=== PATIENT | female | born 1990 | race Caucasian/White ===

== ENCOUNTER 2021-11-17 16:53 | Emergency (ER) | payer MEDICAID, SELFPAY ==
[2021-11-17 17:01] VITALS: BP 128/79; PULSE 81; RESP 12; TEMP 36.7; O2SAT 97; BMI 24.0
--- NOTE | 2021-11-17 17:31 | NURSING ---
pt had blinking lt eye and pulling of face. was just throwing up and talking to nurse about day events. pt then had tonic clonic seizure and drooling with legs drawn up and arms moving about. pt post ictal afterword. pt in bed and safe and in at bedside. seizure lasting 30sec. spo2 90's
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
--- NOTE | 2021-11-17 17:42 | EKG12_ITS ---
Test Reason : SEIZURES Blood Pressure : / mmHG Vent. Rate : 102 BPM Atrial Rate : 102 BPM P-R Int : 148 ms QRS Dur : 086 ms QT Int : 350 ms P-R-T Axes : 069 080 065 degrees QTc Int : 456 ms Sinus tachycardia Otherwise normal ECG Confirmed by NINI BOONE, FLOR ([id number]), newspaper copy editor DANYA ODOM ([id number]) on 11/18/2021 11:26:24 AM Referred By: PL Confirmed By:FLOR TERRAZAS MD
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
[2021-11-17] MEDS: Ondansetron 4 MG/2 ML Vial IV (18:08)
[2021-11-17] MEDS: LORazepam 2 MG/ML Syringe 1 MG IV (18:11)
--- NOTE | 2021-11-17 18:14 | NURSING ---
mother in at bedside. pt with another seizure that started again with eye twitching then into full tonic clonic seizure lasting 50sec. nrb applied d.t pt becoming cyanotic and holding breath but does not keep on when arouses and rips it off
[2021-11-17 18:20] LABS: Absolute Lymphocyte Count 1.43 X10^3/uL (0.83-4.51); Absolute Neutrophil Count 4.6 X10^3/uL (2.0-7.7); Basophil# 0.05 X10^3/uL; Basophil% 0.7 % (0-1); Eosinophil# 0.41 X10^3/uL; Eosinophils% 5.7 % (0-5); Hematocrit 34.7 % (37-47); Hemoglobin 11.8 g/dL (12.0-15.0); Lymphocyte # 1.43 X10^3/ul (0.83-4.51); Lymphocyte % 19.9 % (19-41); Mean Corpuscular Hgb 30.4 pg (27.0-32.0); Mean Corpuscular Volume 89.4 fL (81-99); Mean Platelet Vol. 10.3 fl (6.2-12.0); Monocyte# 0.65 X10^3/uL; Monocyte% 9.1 % (0-10); NRBC Flagged by Analyzer 0 % (0-5); Neutrophil # 4.59 X10^3/uL (2.7-7.7); Neutrophil % 63.9 % (47-70); Platelet Count 218 K/mm3 (150-450); RBC Distribution Width CV 13.1 % (11.6-14.6); Red Blood Count 3.88 M/mm3 (4.2-5.4); White Blood Count 7.2 K/mm3 (4.4-11.0)
[2021-11-17 18:26] VITALS: BP 117/80; PULSE 88; RESP 15; O2SAT 96
[2021-11-17 18:36] LABS: ALB/GLOB Ratio 1.2 RATIO (0.9-2.4); AST(SGOT) 20 U/L (15-37); Alanine Aminotransfer ALT/SGPT 23 U/L (13-56); Albumin, Serum 3.8 g/dL (3.2-5.0); Alkaline Phosphatase 55 U/L (45-117); Anion Gap 8 (5-15); BUN 7 mg/dL (7-18); BUN/Creat Ratio 10.3 RATIO (10-20); Calcium,Total 8.2 mg/dL (8.5-10.1); Chloride 97 mmol/L (98-107); Creatinine, Serum 0.68 mg/dL (0.55-1.02); EST Glomerular Filtration Rate 108 mL/min (>60); Est Glom Filt Rate - Afr Amer 131 mL/min (>60); Estimated Creatinine Clearance 105.41 ml/min; Globulin 3.1 g/dL (2.2-4.2); Glucose 100 mg/dL (74-106); Potassium 3.6 mmol/L (3.5-5.1); Protein, Total 6.9 g/dL (6.4-8.2); Sodium Level 131 mmol/L (136-145)
[2021-11-17 18:45] LABS: Lactic Acid 1.6 mmol/L (0.4-1.9)
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
[2021-11-17 19:10] LABS: Alcohol, Blood (Medical)-Serum < 3.0 mg/dL
[2021-11-17 19:12] LABS: Internal QC Validated? YES +Cl - CLEAR BKGD; Pregnancy, Serum, hCG Quali. NEGATIVE Negative
[2021-11-17 19:26] VITALS: BP 93/65; PULSE 79; RESP 20; O2SAT 97
--- NOTE | 2021-11-17 19:37 | ED.RN ---
1915 pt had her 4th seizure, aware, pulse ox dropped to 68%, placed on nrb
[2021-11-17] MEDS: levETIRAcetam IV 1,000 MG/100 ML BAG 400 MG IV (19:56)
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
[2021-11-17 20:34] VITALS: BP 168/94; PULSE 95; RESP 14; O2SAT 96
[2021-11-17 20:45] VITALS: BP 153/74
[2021-11-17 22:07] VITALS: BP 153/74; PULSE 78; RESP 16; TEMP 36.3; O2SAT 97
== END 2021-11-17 22:11 | disposition short-term general hospital (02) ==
PROVIDERS: Emergency Provider Emergency Medicine; Visit Provider Emergency Medicine
DX: Z04.1 Encounter for examination and observation following transport accident (principal); G40.901 Epilepsy, unspecified, not intractable, with status epilepticus; Z79.899 Other long term (current) drug therapy
CPT/HCPCS: 70450; 70486; 71045; 72125; 72170; 80053; 82077; 83605; 84703; 85025; 87426; 93005; 96365; 96375; 99285; A4216; J2405

== ENCOUNTER 2024-09-28 16:39 | Emergency (ER) | payer MEDICARE, SELFPAY ==
[2024-09-28 16:40] VITALS: BP 108/81; PULSE 99; RESP 16; TEMP 36.2; O2SAT 99; BMI 24.0
--- NOTE | 2024-09-28 16:44 | EX.ED.DYSGE1 ---
HPI History of Present Illness Chief Complaint: Seizure [facility] Medical History delivery delivered Nocturnal epilepsy Migraines Seizures Home Medications ?Medication ?Instructions ?Recorded ?Last Taken ?Type [id number] 250 1 ea PO PRN PRN Pain 12/21/16 Unknown History mg-250 mg-65 mg tablet (Excedrin Migraine) Ibuprofen [Motrin] 800 mg PO TID pain or cramping #30 12/23/16 Unknown Rx tabs citalopram 20 mg tablet 20 mg PO DAILY 11/17/21 Unknown History folic acid 1 mg tablet 2 mg PO DAILY 11/17/21 Unknown History magnesium oxide 400 mg PO DAILY 11/17/21 Unknown History meloxicam 7.5 mg tablet 7.5 mg PO DAILY 11/17/21 Unknown History ondansetron 4 mg disintegrating 4 mg PO Q6H PRN Nausea 11/17/21 Unknown History tablet oxcarbazepine 300 mg tablet 900 mg PO BID 11/17/21 Unknown History perampanel 8 mg tablet 8 mg PO QHS 11/17/21 Unknown History cetirizine 10 mg tablet 10 mg PO DAILY 09/28/24 Unknown History lacosamide 100 mg tablet 100 mg PO BID 09/28/24 Unknown History magnesium oxide 400 mg (241.3 mg 400 mg PO QHS 09/28/24 Unknown History magnesium) tablet omeprazole 20 mg capsule,delayed 20 mg PO DAILY 09/28/24 Unknown History release ondansetron 4 mg disintegrating 4 mg PO Q8H PRN PRN Nausea #10 tabs 09/28/24 Unknown Rx tablet oxcarbazepine 300 mg tablet 750 mg PO BID 09/28/24 Unknown History perampanel 8 mg tablet (Fycompa) 8 mg PO QHS 09/28/24 Unknown History pyridoxine (vitamin B6) 100 mg 100 mg PO DAILY 09/28/24 Unknown History tablet quetiapine 25 mg tablet 25 mg PO QHS 09/28/24 Unknown History sertraline 100 mg tablet 200 mg PO QHS 09/28/24 Unknown History zonisamide 100 mg capsule 300 mg PO QHS 09/28/24 Unknown History Allergy/AdvReac Type Severity Reaction Status Date / Time bupropion HCl (From Allergy Nausea Verified 09/28/24 16:43 Wellbutrin) clarithromycin (From Biaxin) Allergy Other Verified 09/28/24 16:43 aripiprazole (From Abilify) AdvReac Other Verified 09/28/24 16:43 tramadol AdvReac Upset Verified 09/28/24 16:43 Stomach Social History Smoking Status: Never smoker EXAM Physical Exam Const Vital Signs: 09/28/24 16:40 09/28/24 18:39 09/28/24 19:33 Temperature 97.2 F L 97.8 F Temperature Source Oral Pulse Rate 99 77 79 Respiratory Rate 16 16 16 Blood Pressure 108/81 H 106/74 116/79 Blood Pressure Mean 90 84 91 Pulse Ox 99 98 98 Oxygen Delivery Method Room Air Room Air MDM MDM MDM Narrative Medical decision making narrative: HISTORY OF PRESENT ILLNESS: 34-year-old female presents with concern for worsening epilepsy. States she has nocturnal seizures. States she has been suffering from nausea and vomiting last several days which is now allowed to take her oral antiseizure medications. She notes she talked to her neurologist who recommended that she present for evaluation. REVIEW OF SYSTEMS: Pertinent positives: Seizures, nausea vomiting Pertinent negatives: Fever, difficulty urinating, abdominal pain, tongue biting, bowel or bladder incontinence PHYSICAL EXAM: Nursing triage notes reviewed, Vital signs reviewed Constitutional: please see mdm HENT: MMM Eyes: Pupils equal round and reactive to light, Extraocular muscles intact Neck: No stridor, no JVD, full neck ROM Lungs: Clear to auscultation, No wheezing or rales. No increased work of breathing, no conversational dyspnea, no accessory muscle use, no nasal flaring. No respiratory distress noted Heart: Regular rate and rhythm, No murmurs, No rubs and No gallops, 2+ distal pulses (radial, femoral, posterior tibial) in all extremities Abdomen: Soft, there is no tenderness, rigidity, rebound or guarding, no obvious peritoneal signs, no palpable pulsatile abdominal masses, no auscultated abdominal bruit : No CVAT Extremities: No edema Neuro: alert and oriented x3, neuro exam at baseline, cranial nerves II through XII are intact. No pain with extraocular muscle movement. There is negative test of skew. 5 of 5 strength in upper and lower extremities in flexion extension. Intact sensation to light touch in upper and lower extremity dermatomes. No truncal or extremity ataxia. No dysdiadochokinesia. Normal gait. 2+ reflexes in upper and lower extremities. No meningeal signs. Negative Babinski. NIH of 0. Skin: No rash or lesions noted MEDICAL DECISION MAKING: Chief Complaint: Seizure External records reviewed: Reviewed prior [facility] records. The patient has been diagnosed with multifocal epilepsy. This has been EEG confirmed. Medications listed are lacosamide, Fycompa, and oxcarbazepine Factors affecting care: Seizures Social determinants of health: none History obtained from others: none Consults: none [facility] Narrative: Patient was initially hemodynamically stable, afebrile and nontoxic-appearing. She had a nonfocal neuroexam. No evidence of tongue biting. Patient did not witness seizures. She does not mention having multiple seizures without return to baseline. She notes she been having 2 days of nausea and vomiting which which is precluded taking medications. I considered the following differential diagnosis: ICH, breakthrough seizure due to medication noncompliance, hyponatremia, I obtained a broad lab and imaging workup to further elucidate etiology of the patient's complaints. ALL IMAGES (IF OBTAINED) HAVE BEEN PERSONALLY REVIEWED AND INTERPRETED BY MYSELF. CT scan of the head was negative for ICH CBC without leukocytosis, severe anemia, no thrombocytopenia. BMP without evidence of significant electrolyte abnormalities, no anion gap, no acute kidney injury. Lactate is wnl indicating no end-organ hypoperfusion and/or hypoxia. Suggesting no recent seizure activity Urinalysis shows no evidence of urinary inflammation suggestive of UTI Urine test is negative Upon re-evaluation the patient continued to have a nonfocal neurologic exam. She had no breakthrough seizures or signs of status epilepticus. After Zofran and Haldol patient was able to tolerate p.o. She was discharged with prescription for Zofran to continue to take her antiseizure medications as prescribed. I suspect her presentation is secondary to medication noncompliance. Strict return precautions were discussed. Neurology follow-up was recommended. The patient and/or family, caregivers express understanding. The patient and/or family, caregivers agrees with the plan. Shared decision making: I will have a discussion with the patient and or visitors regarding risk/benefits of further testing or admission. They will be made aware of of the risk/benefits inherent in this decision they will be given the opportunity to voice understanding. Total critical care time today provided was at least 0 minutes. This excludes separately billable procedures. Critical care time (if documented) is secondary to the patient having high probability of clinically significant/life threatening deterioration in the patient's condition which required my urgent intervention. Impression: 1. History of epilepsy 2. Breakthrough seizure 3. Nausea & vomiting Dispo: Discharge home This note was generated with [employer] dictation software. It may contain incorrect words, spelling, and punctuation that were not noted in review of the chart prior to signing. Lab Data Labs: Laboratory Results - last 24 hr 09/28/24 09/28/24 17:08 18:35 WBC 7.9 RBC 4.43 Hgb 13.0 Hct 39.4 MCV 88.9 MCH 29.3 MCHC 33.0 RDW Std Deviation 43.9 RDW Coeff of [place] 13.3 Plt Count 256 MPV 10.3 Sodium 136 Potassium 3.6 Chloride 105 Carbon Dioxide 27.0 Anion Gap 5 BUN 7 Creatinine 0.71 Estim Creat Clear Calc 98.23 Est GFR (MDRD) Af Amer 122 Est GFR (MDRD) Non-Af 101 BUN/Creatinine Ratio 9.8 L Glucose 98 Lactic Acid 0.6 Calcium 9.0 Urine Color Yellow Urine Clarity Sl. Cloudy Urine pH 7.0 Ur Specific [place] 1.010 Urine Protein 15 H Urine Glucose (UA) Normal Urine Ketones Negative Urine Occult Blood Negative Urine Nitrite Negative Urine Bilirubin Negative Urine Urobilinogen Normal Ur Leukocyte Esterase 25 H Urine RBC 0 SEEN Urine WBC 0-5 SEEN Ur Squamous Epith Cells 0-5 SEEN Urine Bacteria 1+ Urine Mucus 0 SEEN Urine Test Negative Radiography Diagnostic Testing: Clinical Impression(s) from Imaging Studies Brain CT 09/28/24 17:00 IMPRESSION: Normal unenhanced CT scan of the brain. Electronically Signed: Yury Coleman MD at 17:54 EST , Discharge Plan Triage Chief Complaint: Seizure ED Provider: Seb Cheung Dx/Rx/DC Orders Instructions: ED Seizure, Recurrent (Adult) Prescriptions: New ondansetron 4 mg tablet,disintegrating 4 mg PO Q8H PRN PRN (Reason: Nausea) Qty: 10 0RF No Action Excedrin Migraine 1 EACH tablet 1 ea PO PRN PRN (Reason: Pain) Ibuprofen [Motrin] 800 MG tablet 800 mg PO TID Qty: 30 1RF Rx Instructions: oxcarbazepine 300 mg Tablet 900 mg PO BID meloxicam 7.5 mg Tablet 7.5 mg PO DAILY citalopram 20 mg Tablet 20 mg PO DAILY folic acid 1 mg Tablet 2 mg PO DAILY ondansetron [Zofran ODT] 4 mg Tablet,Disintegrating 4 mg PO Q6H PRN (Reason: Nausea) magnesium oxide 400 mg magnesium Capsule 400 mg PO DAILY perampanel 8 mg Tablet 8 mg PO QHS cetirizine 10 mg tablet 10 mg PO DAILY omeprazole 20 mg capsule,delayed release(DR/EC) 20 mg PO DAILY pyridoxine (vitamin B6) 100 mg tablet 100 mg PO DAILY Fycompa 8 mg tablet 8 mg PO QHS quetiapine 25 mg tablet 25 mg PO QHS sertraline 100 mg tablet 200 mg PO QHS zonisamide 100 mg capsule 300 mg PO QHS magnesium oxide 400 mg (241.3 mg magnesium) tablet 400 mg PO QHS oxcarbazepine 300 mg tablet 750 mg PO BID lacosamide 100 mg tablet 100 mg PO BID Stand Alone Forms: ED Work / School Excuse Primary Care Provider: Care Physician,No Primary Referrals: Lalo Phillips MD [Non-Staff -Ordering Privileges] - Activity Restrictions/Additional Instructions: Thank you for trusting us with your care today! Please continue take your antiseizure medicine as prescribed. Please take Zofran as needed for nausea vomiting control. Please take Tylenol (2 pills, 650 mg), ibuprofen (2 pills, 400 mg) every 6 hours as needed for pain and fever control. Please return to the emergency department if your symptoms change or worsen. Please follow with your Neurologist (Dr. Vann) if unable follow with local neurology Dr. Phillips for further outpatient evaluation and management. Print Language: Kiswahili Disposition Disposition: Home, Self Care Discharge Date/Time: 09/28/24 19:34
--- NOTE | 2024-09-28 17:00 | CT_ITS ---
STUDY: CT BRAIN WITHOUT CONTRAST REASON FOR EXAM: Female, 34 years old. seizure RADIATION DOSAGE (If Supplied By Facility): CTDIvol = ( 44.99 ) mGy, DLP = ( 745.49 ) mGycm TECHNIQUE: Transaxial CT imaging of the brain was performed without administration of intravenous contrast material. Individualized dose optimization techniques were used for this CT. COMPARISON: No relevant priors. FINDINGS: Normal soft tissue structures. Normal calvarium. Normal size ventricles and extra-axial spaces for the patient''s age. Normal white matter tracts of the cerebral hemispheres. Normal basal ganglia and thalami. Normal brainstem. Normal cerebellum. There is no intracranial hemorrhage. There are no findings of an acute ischemic infarction. Normal visualized paranasal sinuses. CT/Brain/Head without Contrast IMPRESSION: Normal unenhanced CT scan of the brain. Electronically Signed: Yury Coleman MD at 17:54 EST ,
[2024-09-28] MEDS: Ondansetron 4 MG/2 ML Vial IV (17:13)
[2024-09-28 17:33] LABS: Hematocrit 39.4 % (37-47); Mean Corpuscular Hgb 29.3 pg (27.0-32.0); Mean Corpuscular Volume 88.9 fL (81-99); Mean Platelet Vol. 10.3 fl (6.2-12.0); Platelet Count 256 K/mm3 (150-450); RBC Distribution Width CV 13.3 % (11.6-14.6); RBC Distribution Width SD 43.9 fl (35.1-43.9); Red Blood Count 4.43 M/mm3 (4.2-5.4); White Blood Count 7.9 K/mm3 (4.4-11.0)
[2024-09-28 17:44] LABS: Anion Gap 5 (5-15); BUN 7 mg/dL (7-18); BUN/Creat Ratio 9.8 RATIO (10-20); Chloride 105 mmol/L (98-107); Creatinine, Serum 0.71 mg/dL (0.55-1.02); EST Glomerular Filtration Rate 101 mL/min (>60); Est Glom Filt Rate - Afr Amer 122 mL/min (>60); Estimated Creatinine Clearance 98.23 ml/min; Glucose 98 mg/dL (74-106); Potassium 3.6 mmol/L (3.5-5.1); Sodium Level 136 mmol/L (136-145)
[2024-09-28 18:06] LABS: Lactic Acid 0.6 mmol/L (0.4-1.9)
[2024-09-28 18:38] LABS: Mucous, Urine 0 SEEN /hpf (<or=2+); Red Blood Cells-Urine 0 SEEN /hpf (0-5)
[2024-09-28 18:39] VITALS: BP 106/74; PULSE 77; RESP 16; O2SAT 98
[2024-09-28 18:39] LABS: Color, Urine Yellow (Yellow); Glucose, Dipstick Normal (Normal); Ketone-Dipstick Negative (Negative); Leukocyte Esterase-Dipstick 25 /ul (Negative); Nitrite-Dipstick Negative (Negative); Occult Blood-Urine Negative /ul (Negative); Protein-Dipstick 15 mg/dl (Negative); Urine Bilirubin Dipstick Negative (Negative); Urine Clarity Sl. Cloudy (Clear); Urine Urobilinogen Normal (Normal)
[2024-09-28 18:48] LABS: Bacteria 1+ /hpf (None Seen); Internal QC Validated? YES +Cl - CLEAR BKGD; Squamous Epithelial Cells - UA 0-5 SEEN /hpf (5-10); White Blood Cells 0-5 SEEN /hpf (0-5)
[2024-09-28 18:49] LABS: Pregnancy, Urine Negative Negative
[2024-09-28] MEDS: Haloperidol Lactate 5 MG/ML Vial 2 MG IV (19:16)
[2024-09-28 19:33] VITALS: BP 116/79; PULSE 79; RESP 16; TEMP 36.6; O2SAT 98
== END 2024-09-28 19:34 | disposition home or self-care (01) ==
PROVIDERS: Emergency Provider Emergency Medicine; Visit Provider Emergency Medicine
DX: G40.909 Epilepsy, unspecified, not intractable, without status epilepticus (principal); R29.700 NIHSS score 0; R11.2 Nausea with vomiting, unspecified; Z79.899 Other long term (current) drug therapy
CPT/HCPCS: 70450; 80048; 81001; 81025; 83605; 85027; 96374; 96375; 99283; A4216; J2405